=== PATIENT | female | born 1935 | race Caucasian/White ===

== ENCOUNTER → 2018-03-24 | Outpatient (CLI) | payer OTHER | LOC: FIMAGING 15:24 | PROVIDERS: ATTEND Physician Assistant | DX: M79.604 Pain in right leg (principal); R60.0 Localized edema ==

== ENCOUNTER 2018-08-17 08:19 | Inpatient (IN) | payer OTHER ==
[2018-08-17 08:51] LABS: PLATELET COUNT 224 10^3/uL (150-400)
[2018-08-17] MEDS ORDERED: FUROSEMIDE 20 MG/2 ML VIAL IVP ONE (09:19)
--- NOTE | 2018-08-17 09:19 | EDPHY ---
H & P Stated Complaint: shortness Time Seen by Provider: 08/17/18 08:42 HPI/ROS: CHIEF COMPLAINT: Shortness of breath HISTORY OF PRESENT ILLNESS: 83-year-old female with atrial fibrillation, status post mitral valve repair presents with shortness of breath. Onset of shortness of breath 2 days ago. Shortness of breath is gradually increasing and now occurs with minimal exertion. Associated with orthopnea. No peripheral swelling or chest pain. No prior history of pulmonary edema. Recently on Cipro for a urinary tract infection. No recent medication changes. REVIEW OF SYSTEMS: complete 10 point ROS reviewed and is negative except for the noted elements in the HPI - Personal History Tetanus Vaccine Date: 2010 - Medical/Surgical History Hx Asthma: No Hx Chronic Respiratory Disease: No Hx Diabetes: No Hx Cardiac Disease: Yes Hx Renal Disease: No Hx Cirrhosis: No Hx Alcoholism: No Hx HIV/AIDS: No Hx Splenectomy or Spleen Trauma: No Other PMH: MITRAL JALEEL REPAIR, MAZE ABLATION,2015, AFIF, TONSILLECTOMY, APPENDECTOMY - Social History Smoking Status: Former smoker Alcohol Use: Sober Drug Use: None Additional Social History: - Physical Exam Exam: General Appearance: Alert, pleasant Eyes: Pupils equal and round, no conjunctival pallor or injection ENT, Mouth: Mucous membranes moist Neck: Normal inspection Respiratory: Lungs are clear to auscultation Cardiovascular: Regular bradycardia Gastrointestinal: Abdomen is soft and nontender Neurological: A&O, nonfocal exam Skin: Warm and dry, no rash Extremities: Nontender, no pedal edema Psychiatric: Mood and affect normal Constitutional: Initial Vital Signs Temperature (C) 36.4 C 08/17/18 08:30 Heart Rate 44 L 08/17/18 08:30 Respiratory Rate 19 08/17/18 08:30 Blood Pressure 181/64 H 08/17/18 08:30 O2 Sat (%) 93 08/17/18 08:30 O2 Delivery Mode Room Air Allergies/Adverse Reactions: ramipril [From Altace] Allergy (Verified 08/17/18 10:30) Tongue Swelling Home Medications: Medication Instructions Recorded Aspirin EC [Aspirin EC 81 mg (OTC)] 162 mg PO DAILY 03/14/12 Multivitamins [Multivitamin (OTC)] 1 each PO DAILY 03/14/12 Pharmacy Completed 03/14/12 03/14/12 Metoprolol Succinate Xr [Toprol Xl 25 mg PO DAILY 02/20/14 25 mg (*)] Warfarin Sodium [Coumadin 5MG (*)] 5 mg PO SUMOWETHFRSA 02/20/14 Acetaminophen [Tylenol ES 500 mg 500 mg PO DAILY 08/17/18 (*)] Cholecalciferol Vit D3 [Vitamin D3 2,000 units PO DAILY 08/17/18 2000 units tab (OTC)] Magnesium Oxide [Magnesium Oxide 400 mg PO HS 08/17/18 400 mg (*)] Melatonin [Melatonin 3 MG (*)] 3 mg PO HS 08/17/18 Warfarin Sodium [Coumadin 7.5MG 7.5 mg PO TU 08/17/18 (*)] Medical Decision Making - Diagnostics EKG Interpretation: EKG interpreted by me reveals atrial fibrillation, ventricular rate 42, LVH. Interpretation: Abnormal EKG Imaging Results: Imaging Impressions Chest X-Ray 08/17/18 08:39 Impression: 1. Cardiomegaly. No failure or fluid overload. 2. Mild airways disease and early minimal interstitial lung disease. 3. Stigmata of previous open heart surgery. Imaging: I viewed and interpreted images myself ED Course/Re-evaluation: This patient presents with exertional shortness of breath. Triage vital signs are normal, including oxygen saturation. Stat EKG reveals atrial fibrillation, with bradycardia. Chest x-ray reveals pulmonary edema and BNP is elevated. Clinical presentation consistent with congestive heart failure. Also has significant bradycardia, most likely related to metoprolol. Lasix 20 mg IV given. Will admit to PCU for further evaluation and care. The patient remained stable throughout her emergency department stay. The hospitalist service was consulted for admission. Differential Diagnosis: Differential diagnosis includes though it is not limited to pneumonia, pneumothorax, pulmonary embolism, aortic dissection, pericarditis, acute coronary syndrome. - Data Points Laboratory Results: Laboratory Results 08/17/18 08:39 08/17/18 08:39 08/17/18 08/17/18 08/17/18 08:46 08:43 08:39 WBC RBC Hgb POC Hgb 12.2 gm/dL L gm/dL (12.6-16.3) Hct POC Hct 36 % L % (38-47) MCV MCH MCHC RDW Plt Count MPV Neut % (Auto) Lymph % (Auto) [place] % (Auto) Eos % (Auto) Baso % (Auto) Nucleat RBC Rel Count Absolute Neuts (auto) Absolute Lymphs (auto) Absolute Monos (auto) Absolute Eos (auto) Absolute Basos (auto) Absolute Nucleated RBC Immature Gran % Immature Gran # PT 27.2 SEC H SEC (12.0-15.0) INR 2.53 H (0.83-1.16) D-Dimer 0.47 ug/mLFEU ug/mLFEU (0.00-0.50) POC Sodium 140 mEq/L mEq/L (135-145) Sodium POC Potassium 4.1 mEq/L mEq/L (3.3-5.0) Potassium POC Chloride 106 mEq/L mEq/L (97-110) Chloride Carbon Dioxide Anion Gap POC BUN 22 mg/dL mg/dL (7-23) BUN Creatinine POC Creatinine 0.9 mg/dL mg/dL (0.6-1.0) Estimated GFR Glucose POC Glucose 137 mg/dL H mg/dL (70-100) Calcium POC Troponin I 0.01 ng/mL ng/mL (0.00-0.08) NT-Pro-B Natriuret Pep 08/17/18 08/17/18 08:39 08:39 WBC 6.86 10^3/uL 10^3/uL (3.80-9.50) RBC 3.78 10^6/uL L 10^6/uL (4.18-5.33) Hgb 12.2 g/dL L g/dL (12.6-16.3) POC Hgb Hct 36.1 % L % (38.0-47.0) POC Hct MCV 95.5 fL fL (81.5-99.8) MCH 32.3 pg pg (27.9-34.1) MCHC 33.8 g/dL g/dL (32.4-36.7) RDW 14.9 % % (11.5-15.2) Plt Count 224 10^3/uL 10^3/uL (150-400) MPV 10.4 fL fL (8.7-11.7) Neut % (Auto) 65.1 % % (39.3-74.2) Lymph % (Auto) 21.3 % % (15.0-45.0) [place] % (Auto) 10.1 % % (4.5-13.0) Eos % (Auto) 2.3 % % (0.6-7.6) Baso % (Auto) 0.9 % % (0.3-1.7) Nucleat RBC Rel Count 0.0 % % (0.0-0.2) Absolute Neuts (auto) 4.47 10^3/uL 10^3/uL (1.70-6.50) Absolute Lymphs (auto) 1.46 10^3/uL 10^3/uL (1.00-3.00) Absolute Monos (auto) 0.69 10^3/uL 10^3/uL (0.30-0.80) Absolute Eos (auto) 0.16 10^3/uL 10^3/uL (0.03-0.40) Absolute Basos (auto) 0.06 10^3/uL 10^3/uL (0.02-0.10) Absolute Nucleated RBC 0.00 10^3/uL 10^3/uL (0-0.01) Immature Gran % 0.3 % % (0.0-1.1) Immature Gran # 0.02 10^3/uL 10^3/uL (0.00-0.10) PT INR D-Dimer POC Sodium Sodium 137 mEq/L mEq/L (135-145) POC Potassium Potassium 4.6 mEq/L mEq/L (3.3-5.0) POC Chloride Chloride 108 mEq/L mEq/L (97-110) Carbon Dioxide 22 mEq/l mEq/l (22-31) Anion Gap 7 mEq/L mEq/L (6-14) POC BUN BUN 22 mg/dL mg/dL (7-23) Creatinine 0.9 mg/dL mg/dL (0.6-1.0) POC Creatinine Estimated GFR 60 Glucose 130 mg/dL H mg/dL (70-100) POC Glucose Calcium 9.0 mg/dL mg/dL (8.5-10.4) POC Troponin I NT-Pro-B Natriuret Pep 4080 pg/mL H pg/mL (0-450) Medications Given: Discontinued Medications Furosemide (Lasix Injection) 20 mg IVP EDNOW ONE Stop: 08/17/18 09:20 Last Admin: 08/17/18 09:28 Dose: 20 mg Point of Care Test Results: Chemistry 08/17/18 08/17/18 08:46 08:43 POC Sodium 140 mEq/L mEq/L (135-145) POC Potassium 4.1 mEq/L mEq/L (3.3-5.0) POC Chloride 106 mEq/L mEq/L (97-110) POC BUN 22 mg/dL mg/dL (7-23) POC Creatinine 0.9 mg/dL mg/dL (0.6-1.0) POC Glucose 137 mg/dL H mg/dL (70-100) POC Troponin I 0.01 ng/mL ng/mL (0.00-0.08) ISTAT H&H 08/17/18 08:46 POC Hgb 12.2 gm/dL L gm/dL (12.6-16.3) POC Hct 36 % L % (38-47) Departure - Departure Disposition: [facility] Inpatient Acute Clinical Impression: Acute pulmonary edema Condition: Fair
[2018-08-17 09:37] LABS: INR 2.53 (0.83-1.16); PROTIME(PATIENT) 27.2 SEC (12.0-15.0)
[2018-08-17] MEDS ORDERED: ONDANSETRON 4 MG/2 ML VIAL IVP PRN (14:34)
[2018-08-17] MEDS ORDERED: ONDANSETRON DISINTEGRATING 4 MG TAB PO PRN (14:34)
[2018-08-17] MEDS ORDERED: ACETAMINOPHEN 325 MG TAB PO PRN (14:34)
[2018-08-17] MEDS ORDERED: hydrALAZINE 20 MG/ML VIAL IVP PRN (14:38)
--- NOTE | 2018-08-17 15:07 | CPEKG ---
Test Reason : OPEN Blood Pressure : / mmHG Vent. Rate : 042 BPM Atrial Rate : 000 BPM P-R Int : 218 ms QRS Dur : 091 ms QT Int : 539 ms P-R-T Axes : 000 075 -20 degrees QTc Int : 451 ms Atrial fibrillation LVH with secondary repolarization abnormality Anterior Q waves, possibly due to LVH Confirmed by Raquel Zafar ([id number]) on 08/17/2018 3:07:24 PM Referred By: Confirmed By:Raquel Zafar
--- NOTE | 2018-08-17 15:21 | PDGENHP ---
History and Physical - Chief Complaint Dyspnea - History of Present Illness 83 yo female with hx of Afib on a BB and AC and s/p MVR p/w SOB worse with exertion. Onset is 5 days ago. Reports orthopnea. Denies CP. Denies Cough. Denies Fever. Reports mild leg swelling. Occasional palpitations but she says this is chronic. In the ER, her CXR shows mild vascular congestion with cardiomegaly. She has an elevated BNP. She was given Lasix 20mg IV. She is on RA. EKG shows Afib with a HR of 42. Also c/w LVH She has urinated after the diuretics but is unclear if she feels better. PMHx: MITRAL JALEEL REPAIR, MAZE ABLATION,2015, AFIF, TONSILLECTOMY, APPENDECTOMY SocHx: Former smoker FMHX: non contributory History Information - Allergies/Home Medication List Allergies/Adverse Reactions: ramipril [From Altace] Allergy (Verified 08/17/18 10:30) Tongue Swelling Home Medications: Aspirin EC [Aspirin EC 81 mg (OTC)] 162 mg PO DAILY 03/14/12 [Last Taken ] Multivitamins [Multivitamin (OTC)] 1 each PO DAILY 03/14/12 [Last Taken 08/17/18 ] Pharmacy Completed 03/14/12 03/14/12 [Last Taken 03/14/12] Metoprolol Succinate Xr [Toprol Xl 25 mg (*)] 25 mg PO DAILY 02/20/14 [Last Taken 08/17/18] Warfarin Sodium [Coumadin 5MG (*)] 5 mg PO SUMOWETHFRSA 02/20/14 [Last Taken ] Acetaminophen [Tylenol ES 500 mg (*)] 500 mg PO DAILY 08/17/18 [Last Taken 08/17] Cholecalciferol Vit D3 [Vitamin D3 2000 units tab (OTC)] 2,000 units PO DAILY [Last Taken 08/17/18] Magnesium Oxide [Magnesium Oxide 400 mg (*)] 400 mg PO HS 08/17/18 [Last Taken 08/16/18] Melatonin [Melatonin 3 MG (*)] 3 mg PO HS 08/17/18 [Last Taken 08/16/18] Warfarin Sodium [Coumadin 7.5MG (*)] 7.5 mg PO TU 08/17/18 [Last Taken 08/15/18] I have personally reviewed and updated: medical history, social history - Social History Smoking Status: Former smoker Alcohol Use: Sober Drug Use: None Review of Systems Review of Systems: ROS: 10pt was reviewed & negative except for what was stated in HPI & below Physical Exam Physical Exam: Temp Pulse Resp BP Pulse Ox 36.9 C 48 L 22 H 176/71 H 91 L 08/17/18 15:14 08/17/18 15:14 08/17/18 15:14 08/17/18 15:14 08/17/18 15:14 Constitutional: no apparent distress Eyes: PERRL, EOMI Ears, Nose, Mouth, Throat: moist mucous membranes, hearing normal Cardiovascular: bradycardia, edema (trace LE edema) Respiratory: no respiratory distress, no rales or rhonchi, clear to auscultation Gastrointestinal: normoactive bowel sounds Skin: warm Neurologic: AAOx3 Psychiatric: interacting appropriately, not anxious, not encephalopathic Lab Data & Imaging Review 08/17/18 08:39 08/17/18 08:39 WBC 6.86 10^3/uL (3.80-9.50) 08/17/18 08:39 RBC 3.78 10^6/uL (4.18-5.33) L 08/17/18 08:39 Hgb 12.2 g/dL (12.6-16.3) L 08/17/18 08:39 POC Hgb 12.2 gm/dL (12.6-16.3) L 08/17/18 08:46 Hct 36.1 % (38.0-47.0) L 08/17/18 08:39 POC Hct 36 % (38-47) L 08/17/18 08:46 MCV 95.5 fL (81.5-99.8) 08/17/18 08:39 MCH 32.3 pg (27.9-34.1) 08/17/18 08:39 MCHC 33.8 g/dL (32.4-36.7) 08/17/18 08:39 RDW 14.9 % (11.5-15.2) 08/17/18 08:39 Plt Count 224 10^3/uL (150-400) 08/17/18 08:39 MPV 10.4 fL (8.7-11.7) 08/17/18 08:39 Neut % (Auto) 65.1 % (39.3-74.2) 08/17/18 08:39 Lymph % (Auto) 21.3 % (15.0-45.0) 08/17/18 08:39 [place] % (Auto) 10.1 % (4.5-13.0) 08/17/18 08:39 Eos % (Auto) 2.3 % (0.6-7.6) 08/17/18 08:39 Baso % (Auto) 0.9 % (0.3-1.7) 08/17/18 08:39 Nucleat RBC Rel Count 0.0 % (0.0-0.2) 08/17/18 08:39 Absolute Neuts (auto) 4.47 10^3/uL (1.70-6.50) 08/17/18 08:39 Absolute Lymphs (auto) 1.46 10^3/uL (1.00-3.00) 08/17/18 08:39 Absolute Monos (auto) 0.69 10^3/uL (0.30-0.80) 08/17/18 08:39 Absolute Eos (auto) 0.16 10^3/uL (0.03-0.40) 08/17/18 08:39 Absolute Basos (auto) 0.06 10^3/uL (0.02-0.10) 08/17/18 08:39 Absolute Nucleated RBC 0.00 10^3/uL (0-0.01) 08/17/18 08:39 Immature Gran % 0.3 % (0.0-1.1) 08/17/18 08:39 Immature Gran # 0.02 10^3/uL (0.00-0.10) 08/17/18 08:39 PT 27.2 SEC (12.0-15.0) H 08/17/18 08:39 INR 2.53 (0.83-1.16) H 08/17/18 08:39 D-Dimer 0.47 ug/mLFEU (0.00-0.50) 08/17/18 08:39 POC Sodium 140 mEq/L (135-145) 08/17/18 08:46 Sodium 137 mEq/L (135-145) 08/17/18 08:39 POC Potassium 4.1 mEq/L (3.3-5.0) 08/17/18 08:46 Potassium 4.6 mEq/L (3.3-5.0) 08/17/18 08:39 POC Chloride 106 mEq/L (97-110) 08/17/18 08:46 Chloride 108 mEq/L (97-110) 08/17/18 08:39 Carbon Dioxide 22 mEq/l (22-31) 08/17/18 08:39 Anion Gap 7 mEq/L (6-14) 08/17/18 08:39 POC BUN 22 mg/dL (7-23) 08/17/18 08:46 BUN 22 mg/dL (7-23) 08/17/18 08:39 Creatinine 0.9 mg/dL (0.6-1.0) 08/17/18 08:39 POC Creatinine 0.9 mg/dL (0.6-1.0) 08/17/18 08:46 Estimated GFR 60 08/17/18 08:39 Glucose 130 mg/dL (70-100) H 08/17/18 08:39 POC Glucose 137 mg/dL (70-100) H 08/17/18 08:46 Calcium 9.0 mg/dL (8.5-10.4) 08/17/18 08:39 POC Troponin I 0.01 ng/mL (0.00-0.08) 08/17/18 08:43 NT-Pro-B Natriuret Pep 4080 pg/mL (0-450) H 08/17/18 08:39 Assessment & Plan Assessment: #Afib #Bradycardia, concern for Tachybrady syndrome #Dyspnea with possible CHF #HTN #Chronic AC, on Warfarin #S/P MVR Plan: -determine clinical response to diuretic given in the ER. Will wait before further dose -Hold Metoprolol pending Cardiology evaluation -check TTE -Telemetry -Hydralazine PRN. May consider SOCORRO-I pending clinical course and TTE results. Holding BB for now per above -Continue Warfarin, currently at therapeutic INR -Full Code
--- NOTE | 2018-08-17 17:10 | ECHO ---
[email or web address] [address] [address] Main: [phone] Fax: Transthoracic Echocardiogram Name: SIDDHARTH JORDAN MR#: [id number] Study Date: 08/17/2018 Study Time: 03:54 PM Date of : 1935 Age: 83 year(s) Height: 162.6 cm (64 in.) Weight: 54.43 kg (120 lb.) BSA: 1.57 m2 Gender: Female Examination: Echo Indication: Acute Pulmonary Edema, Hx of MV repair at outside facility. Image Quality: Contrast: Requested by: Carlos Eduardo Maldonado BP: 179 mmHg/71 mmHg Heart Rate: Rhythm: Sinus bradycardia Indication: Acute Pulmonary Edema, Hx of MV repair at outside facility. Procedure Staff Pier Hand: Floyd Morales RDCS Reading Physician: Miki Galeas MD Requesting Provider: Conclusions: Normal size left ventricle. Normal global systolic LV function. No regional wall motion abnormality. Grade 2 diastolic dysfunction (pseudonormalized LV filling pattern). Mildly reduced RV function. The left atrium is severely dilated. The right atrium is severely dilated. Trivial mitral valve regurgitation. The mitral valve has been repaired, the mean MV PG is 3 mmHg. Mild aortic valve regurgitation is present. Mild tricuspid regurgitation is present. Right ventricular systolic pressure measures 75mmHg. No pericardial effusion. Compared to 04/22/2014, PA systolic pressure has increased (previously 45 mmHg). Measurements: Chambers Valvular Assessment AV/MV Valvular Assessment TV/PV Normal Normal Normal Name Value Range Name Value Range Name Value Range IVSd (2D): 0.8 cm (0.6 cm-1.1 AV Vmax: 1.51 m/s (1 m/s-1.7 TR Vmax: 4.18 mm/s ( - ) cm) m/s) TR PGmax: 70 mmHg ( - ) LVDd (2D): 4.6 cm (3.9 cm-5.3 AV maxP mmHg ( - ) syst. PAP: 75 mmHg ( - ) cm) LVOT Vmax: 0.99 m/s (0.7 m/s-1.1 LVDs (2D): 2.9 cm (2.1 cm-4 m/s) cm) AR (PHT): 788 ms ( - ) LVPWd (2D): 0.8 cm ( - ) MV E Vmax: 1.16 m/s ( - ) MV A Vmax: 0.58 m/s ( - ) MV E/A: 2.00 ( - ) MV meanP mmHg ( - ) Patient: SIDDHARTH JORDAN Study Date: 08/17/2018 Page 1 of 2 03:54 PM Continued Measurements: Chambers Valvular Assessment AV/MV Valvular Assessment TV/PV Name Value Name Value Name Value LADs Lon.9 cm MV E' Septal: 0.04 m/s CVP (est.): 5 mmHg LA Area: 27.2 cm2 MV E/E' Septal: 27.60 LA Volume: 99 ml MV E/E' Lateral: 17.00 LA Volume Index: 63.1 ml/m2 MV VTI: 44.50 cm AR Vmax: 4.34 cm/s Findings: Left Ventricle: Normal size left ventricle. No LV hypertrophy. Normal global systolic LV function. No regional wall motion abnormality. Grade 2 diastolic dysfunction (pseudonormalized LV filling pattern). Right Ventricle: Normal size right ventricle. Mildly reduced RV function. Left Atrium: The left atrium is severely dilated. Right Atrium: The right atrium is severely dilated. Mitral Valve: Trivial mitral valve regurgitation. No mitral stenosis is present. The mitral valve has been repaired, the mean MV PG is 3 mmHg. Aortic Valve: The aortic valve is tri-leaflet. Mild aortic valve regurgitation is present. No aortic valve stenosis is present. Tricuspid Valve: The tricuspid valve appears normal. Mild tricuspid regurgitation is present. Right ventricular systolic pressure measures 75mmHg. The pulmonary artery pressure is severely increased. Pulmonic Valve: The pulmonic valve is normal in appearance. Mild pulmonic valve regurgitation is noted. Aorta: The ascending AO measures 3.2cm. The aorta is normal. IVC: The IVC is dilated. Pericardium: No pericardial effusion. (No Signature Object) Patient: SIDDHARTH JORDAN Study Date: 08/17/2018 Page 2 of 2 03:54 PM [id number]
[2018-08-17] MEDS: MAGNESIUM OXIDE 400 MG TAB PO SCH (19:58)
[2018-08-17] MEDS: MELATONIN 3 MG TAB PO SCH (19:59)
--- NOTE | 2018-08-17 23:53 | GCON ---
CARDIOLOGY CONSULTATION DATE OF CONSULTATION: 08/17/2018 REFERRING PHYSICIAN: Carlos Eduardo Maldonado MD REASON FOR THE CONSULTATION: 1. Probable acute CHF. 2. History of atrial fibrillation. 3. History of valvular heart disease. HISTORY: The patient is an 83-year-old woman with a history of valvular heart disease and atrial fibrillation. She is typically followed by my partner, Dr. Mendoza Das. She has not seen him in 23 months. Over the past 2-1/2 weeks , she has developed significantly worsening shortness of breath and exercise intolerance. At one point, she developed a urinary tract infection and saw her primary care provider. She was given a course of antibiotics, but continued to feel poorly. Yesterday she went to her exercise facility but could not even walk on the treadmill for a few minutes. Last night, she developed significant orthopnea as well. Based on her symptoms, she contemplated trying to get an appointment with either her PCP or with Dr. Das, but opted to come to the emergency room instead. In the emergency room, her chest x-ray demonstrated some evidence for pulmonary vascular congestion. Her BNP was significantly elevated. Her clinical picture was felt to be consistent with an acute episode of CHF, and she was admitted to the hospitalist service. PAST CARDIAC HISTORY AND TESTING: She has a history of atrial fibrillation and valvular heart disease. In 2012, she was found to have severe mitral regurgitation. A cardiac catheterization demonstrated angiographically normal coronary arteries. She opted to go to the [facility] where she underwent open heart surgery on December 20, 2013, consisting of a complex mitral valve repair with artificial chord implantation along with a biatrial maze procedure and pulmonary vein isolation ablation. In 2014, she had recurrent atrial fibrillation. She underwent cardioversion on at least a couple of occasions, but continued to revert to atrial fibrillation. Ultimately, she was relegated to chronic atrial fibrillation. Her last echocardiogram in our office was April of 2014. That study demonstrated normal left ventricular systolic function with an ejection fraction of 63%. Her mitral valve demonstrated stability of her previous repair with no significant regurgitation and no evidence of stenosis. She had no hemodynamically significant valvular heart disease. Mild to moderate TR was present with an estimated PA systolic pressure of 45 mmHg. PAST SURGERY HISTORY: Apart from her cardiac history, she is generally healthy. Diagnoses of hypertension and hyperlipidemia are mentioned in her electronic record. However, she is not on any antihypertensive therapy or lipid -lowering therapy. 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 FAMILY HISTORY: Noncontributory. MEDICATIONS: Her home medications consist of melatonin, magnesium, warfarin, metoprolol succinate 25 mg daily, a vitamin D, aspirin 81 mg daily, and a multivitamin. ALLERGIES: She had angio edema with ramipril. SOCIAL HISTORY: She is . She has an adult son who lives in [place]. She and her travel extensively. She smoked briefly in her early 20s. She consumes approximately 1/2 glass of wine per evening. REVIEW OF SYSTEMS: Positive for dyspnea on exertion and orthopnea. Otherwise, a 10-point review was negative. PHYSICAL EXAMINATION: VITAL SIGNS: Heart rate in the 40s with a junctional rhythm on telemetry. Blood pressure 176/71. O2 saturation 91% on room air. GENERAL: This is a well-developed, well-nourished woman in no acute distress. She is alert and oriented x3. She provides a good clinical history. HEAD AND NECK: No scleral icterus. Mucous membranes moist. Carotid pulses 2+ without bruits. There is no JVD. CHEST: Lung cotter clear to auscultation. CARDIAC: Regular rate and rhythm with a normal S1 and S2. There is no murmur or gallop. ABDOMEN: Soft, nondistended, nontender with normal bowel sounds. EXTREMITIES: 2+ pulses and no peripheral edema. ECG: Her ECG demonstrates a regular narrow complex at 42 beats per minute consistent with a junctional rhythm. She has voltage criteria for left ventricular hypertrophy with associated repolarization abnormalities. LABORATORY STUDIES: Sodium 137, potassium 4.6, BUN 22, and creatinine 0.9. Her initial troponin is normal at 0.01. Her BNP is significantly elevated at 4080. Her CBC demonstrates a white blood cell count of 6.86 with hemoglobin and hematocrit of 12.2 and 36.1. Platelet count is 224,000. ECHOCARDIOGRAM: An echocardiogram performed earlier today demonstrates normal left ventricular size with normal left ventricular systolic function. She has no regional wall motion abnormalities. Diastolic dysfunction is noted. She has severe biatrial enlargement. She has trace mitral regurgitation and no evidence of mitral stenosis. She has mild aortic and tricuspid regurgitation. A PA systolic pressure is 75 mmHg. IMPRESSION/PLAN: This is an 83-year-old woman with a history of valvular heart disease and atrial fibrillation. Despite a maze procedure performed as part of her open heart surgery in 2013, she developed chronic atrial fibrillation. She now presents with markedly worsening dyspnea on exertion, and a chest x-ray suggestive of pulmonary vascular congestion. Her BNP is significantly elevated. Acute Diastolic Congestive Heart Failure: Her clinical picture is suggestive of diastolic congestive heart failure. Her systolic function is normal and her previous mitral valve repair has held up well. She received an initial dose of intravenous furosemide in the emergency room. - Will continue to monitor her fluid status and likely initiate a standing diuretic dosage. Hypertension: Her blood pressure has been significantly elevated throughout the day. She does not think that she has a formal diagnosis of hypertension. However, it is mentioned in our office records. She is not on any antihypertensive therapy as an outpatient. Certainly, her age plus elevated blood pressure could produce significant diastolic dysfunction predisposing her to congestive heart failure. - Her blood pressure will be monitored and consideration will be given to initiation of antihypertensive therapy. Chronic Atrial Fibrillation: Previously, she had paroxysmal atrial fibrillation. Despite a biatrial maze procedure as part of her open heart surgery in 2013, she developed recurrent and ultimately permanent atrial fibrillation. She has continued low-dose beta renea and systemic anticoagulation. She currently demonstrates significant bradycardia with a regular, narrow complex rhythm on ECG suggesting a junctional rhythm. She has not had any lightheadedness or near syncope. - Her beta-renea will be held and her heart rate will be monitored. Valvular Heart Disease: She has a history of previous mitral valve repair. Her current echocardiogram demonstrates that her mitral valve repair has held up nicely over the course of 5 years. She has no other significant valvular problems. /[id number]/MODL MTDD
[2018-08-18 04:10] LABS: PLATELET COUNT 230 10^3/uL (150-400)
[2018-08-18 04:17] LABS: INR 2.54 (0.83-1.16); PROTIME(PATIENT) 27.3 SEC (12.0-15.0)
[2018-08-18] MEDS: FUROSEMIDE 40 MG/4 ML VIAL IVP SCH ×2 (09:01→15:11)
[2018-08-18] MEDS: MULTIVITAMINS 1 EACH TAB PO SCH (09:01)
[2018-08-18] MEDS: ASPIRIN EC 81 MG TAB PO SCH (09:02)
[2018-08-18] MEDS: CHOLECALCIFEROL VIT D3 2,000 UNITS TAB/CAP PO SCH (09:02)
[2018-08-18] MEDS: amLODIPine BESYLATE 5 MG TAB PO SCH (11:06)
--- NOTE | 2018-08-18 12:16 | ASMTCMCOM ---
CM Note CM Note Notes: Pts case discussed in tx rounds. Pt goes by Patsy. Pt is a 83 y/o female admitted for pulmonary edema. Cards have been consulted. Pt is being followed by transitional care. Pt will most likely d/c independent with supportive . No therapies ordered at this time. CM available for changes. Plan: Independent Date Signed: 08/18/2018 12:15 PM Electronically Signed By:JAMES Norman
--- NOTE | 2018-08-18 13:49 | HOSPPROG ---
Hospitalist Progress Note Assessment/Plan: #Afib #Bradycardia -She is still having intermittent Bradycardia with rates lower than 40 as of mid morning -Metoprolol XL has been stopped -Cards following -Given her persistent bradycardia, would keep inpatient and cont monitoring -will await Cards reccs #Diastolic CHF -improving with IV Lasix, which can be continued #Pulm HTN -may need pulm w/u as op #HTN -better with diuretics -cards added Amlodipine today -cont to monitor -Hydralazine PRN #Chronic AC, on Warfarin -INR is at target, continue home dose #S/P MVR, appears ok on Echo. -Full Code Subjective: SOB is better. still with bradycardia Objective: Vital Signs Temp Pulse Resp BP Pulse Ox 36.8 C 55 L 20 138/64 H 92 08/18/18 11:29 08/18/18 11:29 08/18/18 11:29 08/18/18 11:29 08/18/18 11:29 Laboratory Results 08/18/18 03:24 08/18/18 03:24 08/17/18 08/18/18 08/19/18 05:59 05:59 05:59 Intake Total 200 Output Total 1050 Balance -850 PT 27.3 SEC (12.0-15.0) H 08/18/18 03:24 INR 2.54 (0.83-1.16) H 08/18/18 03:24 - Physical Exam Constitutional: no apparent distress Eyes: PERRL Ears, Nose, Mouth, Throat: moist mucous membranes, hearing normal Cardiovascular: regular rate and rhythym, No edema Respiratory: no respiratory distress, no rales or rhonchi, clear to auscultation Gastrointestinal: normoactive bowel sounds Skin: warm Neurologic: AAOx3 Psychiatric: interacting appropriately, not anxious, not encephalopathic Lymph, Heme, Immunologic: No petechiae ICD10 Worksheet Patient Problems: Problems Problem Status Onset Acute pulmonary edema Acute
--- NOTE | 2018-08-18 14:26 | PDMN ---
Medical Necessity Medical necessity: Pt meets IP criteria as of 08/18/2018 per and MCG M-505 ( Atrial fibrillation); los > 2 mn for ongoing tx and management of Afib with bradycardia, CHF and pulmonary HTN; requiring IV hydralazine for BP control, IV diuretics, and cardiology consut.
[2018-08-18] MEDS ORDERED: WARFARIN SODIUM 5 MG TAB PO SCH (16:00)
[2018-08-18] MEDS: MAGNESIUM OXIDE 400 MG TAB PO SCH (20:15)
[2018-08-18] MEDS: MELATONIN 3 MG TAB PO SCH (20:15)
--- NOTE | 2018-08-18 23:06 | PDCARPN ---
Cardiology Progress Note Assessment/Plan: Late Entry (Patient was seen mid-day today) Acute Diastolic CHF: She has no prior history of CHF. Her echocardiogram demonstrates normal left ventricular systolic function. Her previous mitral valve repair has held up nicely. Diastolic dysfunction was noted on her echo and her blood pressure has been significantly elevated. She had a modest response to a single 20 mg intravenous dose of furosemide in the emergency room yesterday. Over the past 24 hr, her fluid balance was -850 ml. - Increase intravenous furosemide to 40 mg twice daily. - Monitor electrolytes and renal function. Hypertension: Her blood pressure has been significantly elevated during her hospital stay. She denies any pre-existing history of hypertension. However, she also reports obtaining occasional home blood pressure readings in the range of 140-160 mmHg. - If it appears that she has "suddenly" developed hypertension at her age, consideeation elida need to be given to secondary causes. - Start amlodipine 5 mg daily. - Selection of additional antihypertensive medications may be problematic. She was admitted with significant bradycardia, making beta renea therapy potentially disadvantageous. She reports an allergy to ramipril. I do not know whether this was a prolonged cough versus angioedema versus acute renal insufficiency versus hyperkalemia. Use of an ARB may also be problematic depending on her history with [employer] and in light of the recent recalls of several ARB agents. Chronic Atrial Fibrillation: Despite a biatrial Maze procedure as part of her previous open heart surgery, she ultimately developed chronic atrial fibrillation. She has no awarerness of her arrhythmia. On admission, she demonstrated junctional bradycardia at 48 bpm. Her metoprolol is on hold. - Her tendency to bradycardia will be followed longitudinally to monitor for worsening conduction system disease which might lead to pacemaker implantation. Valvular Heart Disease: She underwent a complex mitral valve repair several years ago at [facility]. Her echocardiogram yesterday demonstrates that she does not have any hemodynamically significant mitral valve regurgitation or stenosis. She has no other hemodynamically significant valvular issues. 08/18/18 23:10 Subjective: No complaints. Reviewed/Discussed With: family Objective: Vital Signs (8 Hrs) Temp Pulse Resp BP Pulse Ox 08/18/18 20:00 36.6 C 62 16 92/59 L 93 08/18/18 15:42 36.5 C 65 14 143/73 H 92 Intake/Output (24 Hrs) 08/17/18 08/18/18 08/19/18 05:59 05:59 05:59 Intake Total 360 Output Total 2250 Balance -1890 Intake: Oral (ml) 360 Output: Urine (ml) 2250 Toilet 2250 Other: Intake Quantity Yes Sufficient Number of Voids Toilet 1 Result Diagrams: 08/18/18 03:24 08/18/18 03:24 - Physical Exam Constitutional: no apparent distress Eyes: anicteric sclera Ears, Nose, Mouth, Throat: moist mucous membranes Cardiovascular: irregularly irregular Respiratory: clear to auscultate bilat Gastrointestinal: normoactive bowel sounds, no tenderness, no masses Skin: no edema Neurologic: AAOx3 Psychiatric: not anxious ICD10 Worksheet Patient Problems: Problems Problem Status Onset Acute pulmonary edema Acute
[2018-08-19 04:20] LABS: INR 2.41 (0.83-1.16); PROTIME(PATIENT) 26.2 SEC (12.0-15.0)
[2018-08-19] MEDS: amLODIPine BESYLATE 5 MG TAB PO SCH (09:16)
[2018-08-19] MEDS: ASPIRIN EC 81 MG TAB PO SCH (09:17)
[2018-08-19] MEDS: CHOLECALCIFEROL VIT D3 2,000 UNITS TAB/CAP PO SCH (09:17)
[2018-08-19] MEDS: FUROSEMIDE 40 MG/4 ML VIAL IVP SCH (09:17)
[2018-08-19] MEDS: MULTIVITAMINS 1 EACH TAB PO SCH (09:17)
[2018-08-19] MEDS ORDERED: POTASSIUM CL 10 MEQ TAB PO ONE (10:00)
--- NOTE | 2018-08-19 10:10 | PDCARPN ---
Cardiology Progress Note Chief Complaint: Diastolic heart failure Assessment/Plan: Assessment: 1. Acute diastolic heart failure 2. Permanent atrial fibrillation 3. Bradycardia 4. Status post mitral valve repair Plan: -ambulate with assist today. Patient is requesting to be discharged home. This is okay from the cardiology standpoint if patient is able to ambulate without assist. Patient should make an appointment to see Dr. Das or Abigail Duque next week -creatinine is slightly elevated at 1.1. DC IV Lasix. Change Lasix to 40 mg p.o. Daily and add potassium 10 mEq daily starting tomorrow -bradycardia has improved, heart rate at rest is 55-65 beats per minute. 08/19/18 10:08 Subjective: She feels much better today. No dyspnea at rest. She was seen with and RN present in room. Reviewed/Discussed With: family, multidisciplinary team Time Spent with Patient: greater than 25 minutes Time Spent with Patient: Greater than 25 minutes spent on this patients care, greater than 50% of time spent counseling, educating, and coordinating care regarding the above mentioned plan. Objective: Vital Signs (8 Hrs) Temp Pulse Resp BP Pulse Ox 08/19/18 08:00 36.6 C 64 18 125/53 H 91 L 08/19/18 03:47 36.5 C 52 L 16 110/58 L 90 L Intake/Output (24 Hrs) 08/17/18 08/18/18 08/19/18 11:59 11:59 11:59 Intake Total 760 Output Total 2800 Balance -2040 Intake: Oral (ml) 760 Output: Urine (ml) 2800 Toilet 2800 Other: Weight 52.1 kg Intake Quantity Yes Sufficient Number of Voids Toilet 1 Result Diagrams: 08/18/18 03:24 08/19/18 03:19 Telemetry: Atrial fibrillation, ventricular rate 50-65 beats per minute at rest ICD10 Worksheet Patient Problems: Problems Problem Status Onset Acute pulmonary edema Acute
[2018-08-19 12:26] VITALS: BP 119/66
--- NOTE | 2018-08-20 04:33 | GDS ---
DISCHARGE DIAGNOSES: 1. Acute diastolic congestive heart failure. 2. Atrial fibrillation. 3. Bradycardia due to metoprolol. 4. Status post mitral valve repair. HISTORY: Bere is an 83-year-old female, who presented with shortness of breath. She was found to be bradycardic. Her metoprolol was held. She had some mild congestive heart failure. She responded to IV Lasix. She did not have any problems with rapid rates. Amlodipine was added instead of her meto prolol. She was also discharged on some oral Lasix. She is feeling well on room air at the time of discharge. DISCHARGE MEDICATIONS: Please see computer record for full detailed list. New medications: 1. Amlodipine 5 mg p.o. daily. 2. Lasix 40 mg p.o. daily. 3. Potassium 10 mEq p.o. daily. ADDITIONAL DISCHARGE INSTRUCTIONS: Follow up with in 1 week. Greater than 30 minutes' time was spent arranging this discharge. Patient seen and examined by me on day of discharge. /[id number]/MODL
[2018-08-21] MEDS ORDERED: FUROSEMIDE 40 MG TAB PO SCH (09:00)
[2018-08-22] MEDS ORDERED: WARFARIN SODIUM 7.5 MG TAB PO SCH (16:00)
== END 2018-08-19 14:57 | disposition home or self-care (01) | DRG 291 ==
LOC: F2W 12:28 → OBSVTOIN 08-18 14:17
PROVIDERS: ADMIT Family Medicine; ATTEND Family Medicine
DX: I11.0 Hypertensive heart disease with heart failure (principal); I50.31 Acute diastolic (congestive) heart failure; I48.2 Chronic atrial fibrillation; R00.1 Bradycardia, unspecified; Z87.891 Personal history of nicotine dependence; Z79.01 Long term (current) use of anticoagulants
CPT/HCPCS: 82435-PO; 82565-PO; 82947-PO; 84132-PO; 84295-PO; 84484-PO; 84520-PO; 85014-PO; 96374; G0378; J0360; J1940